=== PATIENT | female | born 1985 | race Asian ===

== ENCOUNTER 2019-12-16 00:53 | Emergency (ER) | payer BC, OTHER ==
[~2019-12-16] VITALS: Ht 160 cm; Wt 88.5 kg
--- NOTE | 2019-12-16 01:15 | NUR ---
Pt brought to ER by . Ambulated with steady gait to room. Verbally responsive. AO x 4. Stated that she has been having mild abdominal aches since Tuesday, that worsens when she is laying down/doing yoga. Last night pain exceeded to 7/10 to 10/10, with slight nausea and that prompted patient to bring herself to ER. Denies constipation/diarrhea. Last BM Tuesday, normal consistency. Respirations even and unlabored. Abdomen palpated, guarding noted when LLQ pressed. Abdominal ausculation done, bowel sounds present in all quadrants. No other GI/ complaints. VS stable at this time. Fall precautions maintained. Will continue to monitor.
--- NOTE | 2019-12-16 01:33 | NUR ---
Dr Parmar at bedside for MSE.
[2019-12-16 02:11] LABS: *BILIRUBIN,URIN NEGATIVE (NEGATIVE); *BLOOD, URINE 1+ (NEGATIVE); *CLARITY,URINE CLEAR (CLEAR); *COLOR,URINE YELLOW (YELLOW); *KETONES,URINE NEGATIVE (NEGATIVE); *UROBILINOGEN,URINE 0.2 E.U./dl (NORMAL); LEUKOCYTE ESTERASE ,URINE NEGATIVE (NEGATIVE); NITRITE, URINE NEGATIVE (NEGATIVE); PH,URINE 6.5 (5.0-8.0); UGLUCOSE NEGATIVE (NEGATIVE)
[2019-12-16 02:18] LABS: *URINE HCG, QUAL NEGATIVE (NEGATIVE); BACTERIA,URINE FEW /HPF (NONE SEEN); SQUAMOUS EPITHELIAL CELL,UR FEW /HPF (NONE SEEN); WBC,URINE 0-3 /HPF (0-3)
--- NOTE | 2019-12-16 02:50 | NUR ---
Radiology notified of [facility] order.
--- NOTE | 2019-12-16 03:08 | NUR ---
Pt verbalized that abdominal pain has subsided to 0/10 at this time. Aware that VAUGHN has been ordered. Awaiting VAUGHN. Provided patient with blankets and placed in a comfortable position.
--- NOTE | 2019-12-16 03:33 | NUR ---
VAUGHN Mustafa at bedside.
--- NOTE | 2019-12-16 03:47 | NUR ---
Radiology notified pt is ready for CT.
--- NOTE | 2019-12-16 04:09 | NUR ---
PT BACK FROM CT
--- NOTE | 2019-12-16 05:09 | NUR ---
MD aware of CT findings.
--- NOTE | 2019-12-16 05:18 | NUR ---
Dr Parmar at bedside.
--- NOTE | 2019-12-16 05:41 | NUR ---
Patient discharged to home in stable condition. Written and verbal after care instructions and information for MD referral given, along with CD copies of CT scan. Patient verbalizes understanding of instructions. Stressed follow up or return to ER for worsening s/s. Pt able to ambulate out of ER in steady gait, in stable condition.
[2019-12-16 05:42] VITALS: BP 117/65
== END 2019-12-16 05:43 | disposition home or self-care (01) ==
LOC: ER 00:56
DX: R10.32 Left lower quadrant pain (principal); L68.0 Hirsutism; N92.6 Irregular menstruation, unspecified; N20.0 Calculus of kidney; R93.5 Abnormal findings on diagnostic imaging of other abdominal regions, including retroperitoneum
CPT/HCPCS: 84703; A4663